=== PATIENT | female | born 1975 | race Caucasian/White ===

== ENCOUNTER 2017-02-18 05:50 | Emergency (ER) | payer SELFPAY ==
[~2017-02-18] VITALS: Ht 160 cm; Wt 75.0 kg
[2017-02-18] MEDS ORDERED: TETANUS, DIPHTHERIA, PERTUSSIS VAC/PF 0.5ML (>7YR OLD) IM ONE (06:45)
[2017-02-18 09:05] VITALS: BP 128/76
== END 2017-02-18 09:06 | disposition home or self-care (01) ==
LOC: ER 05:50
DX: S01.01XA Laceration without foreign body of scalp, initial encounter (principal); S06.0X9A Concussion with loss of consciousness of unspecified duration, initial encounter; Z98.890 Other specified postprocedural states; W01.0XXA Fall on same level from slipping, tripping and stumbling without subsequent striking against object, initial encounter; Y93.89 Activity, other specified; Y99.8 Other external cause status; Y92.89 Other specified places as the place of occurrence of the external cause
CPT/HCPCS: 12001; 70450; 81025; 90471; 90715; 99284; X7700; Z7610